=== PATIENT | male | born 1965 | race Two or more races ===

== ENCOUNTER 2021-12-09 21:49 | Emergency (ER) | payer BC ==
[~2021-12-09] VITALS: Ht 172.7 cm; Wt 77.0 kg
[2021-12-09 22:10] VITALS: BP 137/78
[2021-12-10] MEDS ORDERED: predniSONE 20 MG TAB PO ONE (01:15)
[2021-12-10] MEDS ORDERED: KETOROLAC TROMETH 30 MG/ML 1ML VIAL IM ONE (01:15)
[2021-12-10] MEDS ORDERED: IBUP800T27 PO (02:22)
[2021-12-10] MEDS ORDERED: PRED1PAK9 PO (02:22)
== END 2021-12-10 02:19 | disposition home or self-care (01) ==
LOC: ER 21:49
DX: R22.42 Localized swelling, mass and lump, left lower limb (principal); Z88.8 Allergy status to other drugs, medicaments and biological substances
CPT/HCPCS: 73610; 96372; 99283; J1885; J7512